=== PATIENT | male | born 1985 | race American Indian/Alaskan Native ===

== ENCOUNTER 2021-07-14 06:59 | Emergency (ER) | payer SELFPAY ==
[2021-07-14] MEDS ORDERED: SODIUM CHLORIDE 0.9% 1000 ML 1,000 ML IV ONE (11:38)
[2021-07-14 12:29] LABS: Hematocrit 39.2 % (35.5-45.6); Hemoglobin 13.6 gm/dl (11.8-15.2); Mean Corpuscular HGB Conc 35 % (32-34); Mean Corpuscular Volume 87 fl (84-94); Platelet Count 283 K/mm3 (140-440); Red Blood Count 4.53 M/mm3 (3.65-5.03); Red Cell Distribution Width 14.5 % (13.2-15.2)
[2021-07-14 13:02] LABS: Bilirubin,Urine NEG (Negative); Blood,Urine SM (Negative); Color,Urine Yellow (Yellow); Mucus,Urine FEW /HPF; Protein,Urine <15 mg/dL mg/dL (Negative); RBC,Urine < 1.0 /HPF (0.0-6.0)
[2021-07-14 13:16] LABS: Amphetamine Screen,Urine Negative; Benzodiazepines Screen,Urine Negative; Cannabinoid Screen,Urine Negative; Methadone Screen,Urine Negative; Opiate Screen,Urine Negative
[2021-07-14 13:36] LABS: Cocaine Screen,Urine Positive
--- NOTE | 2021-07-14 14:36 | Emergency Department Report ---
ED General Adult HPI - General Chief complaint: Alcohol Stated complaint: HIGH HEART RATE PUI?: No Time Seen by Provider: 07/14/21 11:28 Source: EMS Mode of arrival: Ambulatory Limitations: No Limitations - History of Present Illness Initial comments: This is a pleasant 36-year-old male who came in today with no specific concerns. According patient he has been using cocaine and patient actually denies any discomfort. Patient currently denies any fever shortness breath dizziness blurred vision lightheadedness headache tinnitus ear pain runny nose sore throat loss of taste loss of smell chest pain palpitation short of breath cough abdominal pain nausea vomiting diarrhea constipation joint pain muscle pain new rash and heat or cold intolerance. - Related Data Allergies Allergy/AdvReac Type Severity Reaction Status Date / Time No Known Allergies Allergy Unverified 07/14/21 08:37 ED Review of Systems ROS: Stated complaint: HIGH HEART RATE Other details as noted in HPI Comment: All other systems reviewed and negative Constitutional: no symptoms reported Eyes: as per HPI ENT: as per HPI Respiratory: no symptoms reported Cardiovascular: as per HPI Endocrine: no symptoms reported, see HPI Gastrointestinal: as per HPI Genitourinary: as per HPI Musculoskeletal: as per HPI Skin: as per HPI Neurological: as per HPI Psychiatric: as per HPI Hematological/Lymphatic: as per HPI ED Past Medical Hx - Past Medical History Previous Medical History?: No - Social History Smoking Status: Current Every Day Smoker Substance Use Type: Cocaine ED Physical Exam - General Limitations: No Limitations General appearance: alert, in no apparent distress - Head Head exam: Present: atraumatic, normocephalic, normal inspection - Eye Eye exam: Present: normal appearance, PERRL, EOMI Pupils: Present: normal accommodation - ENT ENT exam: Present: normal exam, mucous membranes moist - Neck Neck exam: Present: normal inspection, full ROM - Respiratory Respiratory exam: Present: normal lung sounds bilaterally - Cardiovascular Cardiovascular Exam: Present: regular rate, normal rhythm, normal heart sounds - GI/Abdominal GI/Abdominal exam: Present: soft - Back Exam Back exam: Present: normal inspection, full ROM - Neurological Exam Neurological exam: Present: alert, altered, oriented X3, CN II-XII intact - Psychiatric Psychiatric exam: Present: normal affect, normal mood - Skin Skin exam: Present: warm, normal color ED Course Vital Signs 07/14/21 07/14/21 07/14/21 08:37 11:36 11:55 Temperature 98.2 F Pulse Rate 100 H 105 H 93 H Respiratory 16 22 14 Rate Blood Pressure 146/98 Blood Pressure 130/94 [Right] O2 Sat by Pulse 98 99 99 Oximetry 07/14/21 07/14/21 07/14/21 12:00 12:16 12:30 Temperature Pulse Rate 93 H 92 H 97 H Respiratory 14 13 14 Rate Blood Pressure 138/96 Blood Pressure [Right] O2 Sat by Pulse 99 99 99 Oximetry 07/14/21 07/14/21 07/14/21 12:46 13:00 13:16 Temperature Pulse Rate 102 H 89 97 H Respiratory 13 14 14 Rate Blood Pressure 129/83 149/99 137/92 Blood Pressure [Right] O2 Sat by Pulse 100 99 99 Oximetry 07/14/21 07/14/21 07/14/21 13:30 13:46 14:00 Temperature Pulse Rate 85 90 86 Respiratory 15 13 13 Rate Blood Pressure 148/97 139/93 143/94 Blood Pressure [Right] O2 Sat by Pulse 99 99 100 Oximetry 07/14/21 07/14/21 07/14/21 14:16 14:30 14:46 Temperature Pulse Rate 109 H 85 83 Respiratory 12 13 15 Rate Blood Pressure 151/94 138/100 147/91 Blood Pressure [Right] O2 Sat by Pulse 100 100 99 Oximetry 07/14/21 15:00 Temperature Pulse Rate 89 Respiratory 11 L Rate Blood Pressure 149/90 Blood Pressure [Right] O2 Sat by Pulse 99 Oximetry - Reevaluation(s) Reevaluation #1: 07/14/21 15:23 Patient remains hemodynamic stable and afebrile. Patient is stable for discharge. ED Medical Decision Making - Lab Data Result diagrams: 07/14/21 11:50 07/14/21 11:50 Critical care attestation.: If time is entered above; I have spent that time in minutes in the direct care of this critically ill patient, excluding procedure time. ED Disposition Clinical Impression: Cocaine use Disposition: 01 HOME / SELF CARE / HOMELESS Is pt being admited?: No Does the pt Need Aspirin: No Condition: Stable Time of Disposition: 15:23
[2021-07-14 14:59] LABS: BUN/Creatinine Ratio 8; Blood Urea Nitrogen 6 mg/dL (9-20); Calcium 10.2 mg/dL (8.4-10.2); Hemolysis Index 1
[2021-07-14 15:48] VITALS: BP 135/89
--- NOTE | 2021-07-16 18:48 | Electrocardiograph Report ---
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
== END 2021-07-14 15:54 | disposition home or self-care (01) ==
LOC: ED 06:59
DX: F14.90 Cocaine use, unspecified, uncomplicated (principal); F17.200 Nicotine dependence, unspecified, uncomplicated; Z79.899 Other long term (current) drug therapy
CPT/HCPCS: 36415; 80048; 80307; 81001; 85027; 93005; 96360; 99284; J7030; 80320; G0480